=== PATIENT | male | born 1955 | race American Indian/Alaskan Native ===

== ENCOUNTER 2017-04-09 06:15 | Day surgery (SDC) | payer OTHER ==
[2017-04-07 15:34] VITALS: BMI 21.9
[~2017-04-09 06:15] MED LIST: LIDOCAINE HCL 2% (50ML VIAL) INF ONE
[2017-04-09] MEDS ORDERED: LIDOCAINE HCL 2% (20ML MULTI-DOSE VIAL) NR ONE (07:20)
[2017-04-09] MEDS ORDERED: MIDAZOLAM HCL 2 MG/2 ML SINGLE DOSE VIAL ONE (07:24)
[2017-04-09] MEDS ORDERED: ONDANSETRON 4 MG/2 ML VIAL ONE (07:25)
[2017-04-09] MEDS ORDERED: DEXAMETHASONE SOD PHOSPHATE 4 MG/1 ML VIAL ONE (07:25)
[2017-04-09] MEDS ORDERED: KETOROLAC TROMETHAMINE 30 MG/1 ML VIAL ONE (07:25)
[2017-04-09] MEDS ORDERED: LIDOCAINE HCL 2% (50ML VIAL) INF ONE ×2 (07:59)
[2017-04-09 08:36] VITALS: TEMP 98
[2017-04-09 09:02] VITALS: BP 108/65; PULSE 72
--- NOTE | 2017-04-12 00:41 | OP ---
DATE OF OPERATION: 04/09/2017 SURGEON: Gordon Craft MD PHYSICAL CHEMIST: RAHUL Tejada PREOPERATIVE DIAGNOSIS: Left ring finger trigger finger/tenosynovitis. POSTOPERATIVE DIAGNOSIS: Left ring finger trigger finger/tenosynovitis. PROCEDURE: Excision/release of tenosynovitis of A1 maya/ring finger release. FINDINGS: Thickened A1 maya with impingement complex of tendon and diffuse fraying. PROCEDURE: Informed consent was obtained. Patient was brought to the operating room and the left upper extremity was prepped and draped in the sterile fashion. Tourniquet was placed on the upper arm and inflated to 250 mmHg. Local area was injected with 5 mL of 1% lidocaine. Incision was made on the area of the A1 maya. Soft tissue debridement exposed the thickened tissue, which was incised and extended proximally and distally with blunt tenotomy scissors. Curved hemostats surrounded the tendon. It was brought out of the wound and there was no longer catching with flexion and extension. Minor fraying was debrided along the tendon. Wound was irrigated with copious amounts of irrigation and closed with 4-0 nylon single interrupted sutures. Sterile dressing was placed. Patient was transferred to the recovery room in stable condition. GORDON CRAFT M.D. [id number]
== END 2017-04-09 09:00 | disposition home or self-care (01) ==
LOC: FASU 06:15
PROVIDERS: ATTEND Orthopaedic Surgery
PROC: 0LN80ZZ Release Left Hand Tendon, Open Approach (ICD-10-PCS; principal; 2017-04-09 07:30)
DX: M65.342 Trigger finger, left ring finger (principal); M65.842 Other synovitis and tenosynovitis, left hand